=== PATIENT | male | born 1990 | race Caucasian/White ===

== ENCOUNTER 2023-10-31 04:20 | Day surgery (SDC) | payer OTHER ==
[2023-10-28 15:34] VITALS: BMI 31.5
[2023-10-31] MEDS ORDERED: oxyCODONE HCL 5 MG TABLET PO PRN (07:58)
[2023-10-31] MEDS ORDERED: ONDANSETRON 4 MG/2 ML VIAL IVPUSH PRN (07:58)
[2023-10-31] MEDS ORDERED: LACTATED RINGERS SOLUTION 1,000 ML IV SCH (08:00)
[2023-10-31] MEDS ORDERED: MIDAZOLAM HCL 2 MG/2 ML SINGLE DOSE VIAL ONE (08:20)
[2023-10-31] MEDS ORDERED: DEXAMETHASONE SOD PHOSPHATE 4 MG/1 ML VIAL ONE (08:20)
[2023-10-31] MEDS ORDERED: PROPOFOL 20 ML ONE (08:20)
[2023-10-31] MEDS ORDERED: LIDOCAINE 1%/EPI 1:100000 (20 ML MULTI DOSE VIAL) ONE (09:11)
[2023-10-31] MEDS ORDERED: GLYCOPYRROLATE 0.2 MG/1 ML VIAL ONE (09:30)
[2023-10-31] MEDS ORDERED: ceFAZolin SODIUM 1 GM VIAL ONE (09:45)
[2023-10-31] MEDS: ceFAZolin SODIUM 1 GM VIAL IVPB ONE (09:45)
[2023-10-31] MEDS: LIDOCAINE 1%/EPI 1:100000 (50 ML MULTI DOSE VIAL) INF ONE ×2 (09:50)
[2023-10-31] MEDS ORDERED: ONDANSETRON 4 MG/2 ML VIAL ONE (10:07)
[2023-10-31] MEDS ORDERED: KETOROLAC TROMETHAMINE 30 MG/1 ML VIAL ONE (10:07)
[2023-10-31 11:14] VITALS: RESP 18
[2023-10-31 11:43] VITALS: BP 113/52; PULSE 59; TEMP 97.1
== END 2023-10-31 12:36 | disposition home or self-care (01) ==
LOC: JASU-SURG 04:20
PROVIDERS: ATTEND Surgery
PROC: 0JB70ZZ Excision of Back Subcutaneous Tissue and Fascia, Open Approach (ICD-10-PCS; principal; 2023-10-31 09:00)
DX: D17.1 Benign lipomatous neoplasm of skin and subcutaneous tissue of trunk (principal)
CPT/HCPCS: 88304-TC; 94760